=== PATIENT | male | born 1985 | race Caucasian/White ===

== ENCOUNTER 2020-11-08 18:50 | Inpatient (IN) | payer MEDICAID ==
[~2020-11-08] VITALS: Ht 175.3 cm; Wt 64.9 kg
[2020-11-08 20:45] LABS: HEMATOCRIT. 30.1 % (42.0-52.0); HEMOGLOBIN. 9.8 g/dL (14.0-18.0); MEAN CORPUSCULAR HEMOGLOBIN 28.8 pg (28.0-32.0); MEAN CORPUSCULAR VOLUME 89.1 fL (80.0-94.0); PLATELET 150 x1000/uL (130-400); RED BLOOD CELL COUNT 3.38 mill/uL (4.7-6.1); RED CELL DISTRIBUTION WIDTH 14.7 % (11.6-14.6)
[2020-11-08 21:07] LABS: CHLORIDE 98 mEq/L (98-107)
[2020-11-08 21:32] LABS: PLATELET ESTIMATE NORMAL
[2020-11-08] MEDS ORDERED: AZITHROMYCIN 500 MG in DEXT 5% WATER 250 ML IV ONE (21:45)
[2020-11-08] MEDS ORDERED: CEFTRIAXONE 1 G PREMIX 50 ML IV ONE (21:45)
[2020-11-09] MEDS ORDERED: ONDANSETRON HCL 4MG/2ML INJ IV PRN (08:45)
[2020-11-09] MEDS ORDERED: DEXTROSE 50% WATER 50ML SYRINGE IV PRN (08:45)
[2020-11-09] MEDS ORDERED: ACETAMINOPHEN 325MG TABLET PO PRN (08:45)
[2020-11-09 10:30] VITALS: BP 128/87
[2020-11-09 11:00] VITALS: BP 128/80
[2020-11-09] MEDS: PIPERACILLIN/TAZOBACTAM 3.375 G in DEXT 5% WATER 100 ML IV SCH ×3 (11:21→22:18)
[2020-11-09 12:00] VITALS: BP 134/81
[2020-11-09] MEDS: VANCOMYCIN 1 G PREMIX 200 ML IV SCH ×2 (12:38→20:56)
[2020-11-09] MEDS: BLOOD SUGAR DIAGNOSTIC STRIP TEST SCH ×3 (12:40→20:19)
[2020-11-09] MEDS: INSULIN LISPRO 100 UNITS/ML SUBCUT SCH ×3 (12:45→20:19)
[2020-11-09 16:00] VITALS: BP 123/83
[2020-11-09] MEDS: ENOXAPARIN 40MG/0.4ML SYR SUBCUT SCH (16:29)
[2020-11-09] MEDS ORDERED: INSULIN GLARGINE UD 100 UNITS/ML SYR SUBCUT NR (16:30)
[2020-11-09] MEDS ORDERED: INSU100V3 SUBCUT (18:01)
[2020-11-09] MEDS ORDERED: INSU100I28 SQ (18:01)
[2020-11-09 20:00] VITALS: BP 136/85
[2020-11-09 20:59] LABS: HEMATOCRIT. 26.2 % (42.0-52.0); HEMOGLOBIN. 8.6 g/dL (14.0-18.0); MEAN CORPUSCULAR HEMOGLOBIN 29.2 pg (28.0-32.0); MEAN CORPUSCULAR VOLUME 89.1 fL (80.0-94.0); MEAN PLATELET VOLUME 9.4 fl (7.4-10.4); PLATELET 142 x1000/uL (130-400); RED BLOOD CELL COUNT 2.94 mill/uL (4.7-6.1)
[2020-11-09] MEDS: INSULIN GLARGINE UD 100 UNITS/ML SYR SUBCUT SCH (22:18)
[2020-11-09 22:28] LABS: PLATELET ESTIMATE NORMAL
[2020-11-10] VITALS: BP 154/87
[2020-11-10] MEDS ORDERED: CALC0.253 PO (00:09)
[2020-11-10] MEDS ORDERED: DOCU100T MT (00:09)
[2020-11-10] MEDS ORDERED: FERR15DR7 PO (00:09)
[2020-11-10] MEDS ORDERED: CARV3.1242 MT (00:09)
[2020-11-10] MEDS: PIPERACILLIN/TAZOBACTAM 3.375 G in DEXT 5% WATER 100 ML IV SCH ×4 (03:56→20:56)
[2020-11-10 04:00] VITALS: BP 149/90
[2020-11-10] MEDS: BLOOD SUGAR DIAGNOSTIC STRIP TEST SCH ×4 (07:48→20:57)
[2020-11-10 08:16] VITALS: BP 135/87
[2020-11-10] MEDS: VANCOMYCIN 1 G PREMIX 200 ML IV SCH (08:25)
[2020-11-10] MEDS: ENOXAPARIN 40MG/0.4ML SYR SUBCUT SCH (08:26)
[2020-11-10] MEDS: INSULIN LISPRO 100 UNITS/ML SUBCUT SCH ×4 (08:27→20:57)
[2020-11-10] MEDS ORDERED: BENAZEPRIL 10MG TABLET PO SCH (09:00)
[2020-11-10] MEDS: INSULIN GLARGINE UD 100 UNITS/ML SYR SUBCUT SCH ×2 (11:06→20:57)
[2020-11-10 12:00] VITALS: BP 124/83
[2020-11-10] MEDS: SODIUM CHLORIDE 0.9% 1,000 ML IV SCH (15:55)
[2020-11-10] MEDS: AMLODIPINE 10MG TABLET PO SCH (15:55)
[2020-11-10 16:00] VITALS: BP 118/79
[2020-11-10] MEDS ORDERED: SODIUM POLYSTYRENE SULFONATE 15 G/60 ML BOT PO NR (19:45)
[2020-11-10 20:00] VITALS: BP 118/75
[2020-11-11] VITALS: BP 127/77
[2020-11-11 04:00] VITALS: BP 121/80
[2020-11-11] MEDS: PIPERACILLIN/TAZOBACTAM 3.375 G in DEXT 5% WATER 100 ML IV SCH ×2 (05:44→09:20)
[2020-11-11] MEDS: BLOOD SUGAR DIAGNOSTIC STRIP TEST SCH ×4 (05:45→20:05)
[2020-11-11 06:56] LABS: BASOPHILS % 1.1 % (0.0-2.0); EOSINOPHILS % 5.6 % (0.0-5.0); HEMATOCRIT. 25.8 % (42.0-52.0); HEMOGLOBIN. 8.4 g/dL (14.0-18.0); LYMPHOCYTES % 7.5 % (20.0-50.0); MEAN CORPUSCULAR HEMOGLOBIN 28.8 pg (28.0-32.0); MEAN CORPUSCULAR VOLUME 88.6 fL (80.0-94.0); MEAN PLATELET VOLUME 9.1 fl (7.4-10.4); MONOCYTES % 11.2 % (2.0-8.0); NEUTROPHILS % 74.6 % (40.0-76.0); PLATELET 161 x1000/uL (130-400); RED BLOOD CELL COUNT 2.91 mill/uL (4.7-6.1); RED CELL DISTRIBUTION WIDTH 14.2 % (11.6-14.6)
[2020-11-11 08:00] VITALS: BP 139/80
[2020-11-11] MEDS: INSULIN LISPRO 100 UNITS/ML SUBCUT SCH ×4 (08:10→20:05)
[2020-11-11] MEDS: AMLODIPINE 10MG TABLET PO SCH (09:20)
[2020-11-11] MEDS: ENOXAPARIN 40MG/0.4ML SYR SUBCUT SCH (09:20)
[2020-11-11 12:00] VITALS: BP 139/80
[2020-11-11] MEDS: SODIUM CHLORIDE 0.9% 1,000 ML IV SCH (12:01)
[2020-11-11] MEDS: INSULIN GLARGINE UD 100 UNITS/ML SYR SUBCUT SCH ×2 (12:02→20:29)
[2020-11-11 16:00] VITALS: BP 133/90
[2020-11-11] MEDS: PIPERACILLIN/TAZOBACTAM 2.25 G in DEXTROSE 5% WATER 50 ML IV SCH (17:07)
[2020-11-11 20:27] VITALS: BP 133/83
[2020-11-12 06:45] LABS: BASOPHILS % 1.2 % (0.0-2.0); EOSINOPHILS % 6.4 % (0.0-5.0); HEMATOCRIT. 25.2 % (42.0-52.0); HEMOGLOBIN. 8.4 g/dL (14.0-18.0); MEAN CORPUSCULAR HEMOGLOBIN 29.7 pg (28.0-32.0); MEAN CORPUSCULAR VOLUME 89.3 fL (80.0-94.0); MEAN PLATELET VOLUME 8.9 fl (7.4-10.4); MONOCYTES % 9.4 % (2.0-8.0); PLATELET 170 x1000/uL (130-400); RED BLOOD CELL COUNT 2.82 mill/uL (4.7-6.1); RED CELL DISTRIBUTION WIDTH 14.2 % (11.6-14.6)
[2020-11-12] MEDS: PIPERACILLIN/TAZOBACTAM 2.25 G in DEXTROSE 5% WATER 50 ML IV SCH ×3 (06:45→18:28)
[2020-11-12] MEDS: BLOOD SUGAR DIAGNOSTIC STRIP TEST SCH ×4 (06:53→21:00)
[2020-11-12] MEDS: SODIUM CHLORIDE 0.9% 1,000 ML IV SCH (07:15)
[2020-11-12] MEDS: INSULIN LISPRO 100 UNITS/ML SUBCUT SCH ×4 (08:10→21:00)
[2020-11-12] MEDS ORDERED: LIDOCAINE HCL/PF 1% 2ML VIAL ONE (09:00)
[2020-11-12] MEDS: AMLODIPINE 10MG TABLET PO SCH (10:00)
[2020-11-12] MEDS: ENOXAPARIN 40MG/0.4ML SYR SUBCUT SCH (10:00)
[2020-11-12] MEDS: INSULIN GLARGINE UD 100 UNITS/ML SYR SUBCUT SCH ×2 (11:10→22:00)
[2020-11-12 12:00] VITALS: BP 131/79
[2020-11-12 16:22] LABS: BG BASE EXCESS -1.2 mmol/L (-2.0-2.0); BG CARBOXYHEMOGLOBIN 0.3 % (0.5-1.5); BG FRACTION INSPIRED OXYGEN 21; BG HCO3 ACT 23.5 mmol/L (22.0-26.0); BG METHEMOGLOBIN 0.5 % (0.0-1.5); BG OXYGEN SATURATION 84.9 % (92.0-98.5); BG OXYHEMOGLOBIN 84.2 % (94.0-97.0); BG PCO2 39.3 mmHg (35.0-45.0); BG PH 7.395 (7.350-7.450); BG SAMPLE SITE LEFT RADIAL; BG TOTAL HEMOGLOBIN 9.3 g/dL (12.0-18.0); BG VENT MODE ROOM AIR
[2020-11-12 20:36] VITALS: BP 138/81
[2020-11-12 23:44] VITALS: BP 140/78
[2020-11-13] MEDS: PIPERACILLIN/TAZOBACTAM 2.25 G in DEXTROSE 5% WATER 50 ML IV SCH ×2 (02:22→09:51)
[2020-11-13] MEDS: SODIUM CHLORIDE 0.9% 1,000 ML IV SCH (02:22)
[2020-11-13 04:00] VITALS: BP 118/61
[2020-11-13] MEDS: BLOOD SUGAR DIAGNOSTIC STRIP TEST SCH ×2 (07:40→13:12)
[2020-11-13] MEDS ORDERED: ENOXAPARIN 30MG/0.3ML SYR SUBCUT SCH (09:00)
[2020-11-13] MEDS: ENOXAPARIN 40MG/0.4ML SYR SUBCUT SCH (09:51)
[2020-11-13] MEDS: AMLODIPINE 10MG TABLET PO SCH (09:51)
[2020-11-13] MEDS: INSULIN LISPRO 100 UNITS/ML SUBCUT SCH ×2 (09:56→13:20)
[2020-11-13] MEDS: INSULIN GLARGINE UD 100 UNITS/ML SYR SUBCUT SCH (10:49)
[2020-11-13 12:00] VITALS: BP 145/83
[2020-11-13] MEDS ORDERED: ALBU18HF2 IH (12:46)
[2020-11-13 15:21] VITALS: BP 145/83
[2020-11-13 16:00] VITALS: BP 121/76
[2020-11-13] MEDS ORDERED: CARVEDILOL 3.125 MG TABLET PO SCH (17:00)
== END 2020-11-13 18:15 | disposition home or self-care (01) | DRG 721 ==
LOC: ER 18:50 → MICUSO 22:44 → 7WST 11-09 07:13
PROVIDERS: ADMIT Internal Medicine; ATTEND Internal Medicine
PROC: 02PYX3Z Removal of Infusion Device from Great Vessel, External Approach (ICD-10-PCS; principal; 2020-11-10)
DX: T80.211A Bloodstream infection due to central venous catheter, initial encounter (principal); A41.89 Other specified sepsis; U07.1 COVID-19; J96.00 Acute respiratory failure, unspecified whether with hypoxia or hypercapnia; E43 Unspecified severe protein-calorie malnutrition; J12.82 Pneumonia due to coronavirus disease 2019; N17.9 Acute kidney failure, unspecified; D64.9 Anemia, unspecified; E11.319 Type 2 diabetes mellitus with unspecified diabetic retinopathy without macular edema; E87.5 Hyperkalemia; Z86.16 Personal history of COVID-19; N18.9 Chronic kidney disease, unspecified; I12.9 Hypertensive chronic kidney disease with stage 1 through stage 4 chronic kidney disease, or unspecified chronic kidney disease; E11.22 Type 2 diabetes mellitus with diabetic chronic kidney disease; Z90.49 Acquired absence of other specified parts of digestive tract; Z79.4 Long term (current) use of insulin; Z79.899 Other long term (current) drug therapy; Z68.21 Body mass index [BMI] 21.0-21.9, adult; Y92.89 Other specified places as the place of occurrence of the external cause
CPT/HCPCS: 36415; 36600; 71045; 80048; 80053; 80202; 82375; 82805; 82962; 83036; 85025; 87070; 93005; 96365; 99291; J0456; J0696; J1650; J1815; J2543; J3370; J3490; J7030; J7040; J7060; U0003